=== PATIENT | male | born 1940 | race Caucasian/White ===

== ENCOUNTER → 2018-02-02 | Outpatient (CLI) | payer MEDICARE, OTHER ==
[~2018-02-02] MED LIST: ASPI-515 PO; ATOR40TA78 PO; CALC1CAP8 PO; CELE200C PO; CHOL10003 PO; DOCU-131 PO; FAMO20TA7 PO; FINA5TAB4 PO; GLUC500T11 PO; ONDA4TAB13 SL; OXYC5TAB3 PO; TAMS-11 PO; TRAM50TA2 PO
[2018-02-02 14:25] LABS: CULTURE INDICATED? NO; MICROSCOPIC NOT IND
[2018-02-02 14:29] LABS: BASOPHILS # (AUTO) 0.06 x10^3/uL (0-0.1); BASOPHILS % (AUTO) 1 % (0-1); EOSINOPHILS # (AUTO) 0.08 x10^3/uL (0-0.4); EOSINOPHILS % (AUTO) 1 % (1-7); LYMPHOCYTES % (AUTO) 29 % (22-44); MD NO; MEAN CORPUSCULAR HEMOGLOBIN 32.3 pg (27.5-34.5); MEAN CORPUSCULAR HGB CONC 33.9 g/dL (33.2-36.2); MEAN CORPUSCULAR VOLUME 95.2 fL (81-97); MEAN PLATELET VOLUME 9.1 fL (7.4-10.4); MONOCYTES # (AUTO) 0.74 x10^3/uL (0.2-0.8); MONOCYTES % (AUTO) 9 % (2-9); NEUTROPHILS # (AUTO) 4.88 x10^3/uL (1.8-6.8); NEUTROPHILS % (AUTO) 61 % (42-75); PLATELET COUNT 239 x10^3/uL (130-400); RED BLOOD COUNT 4.92 x10^6/uL (4.38-5.82); RED CELL DISTRIBUTION WIDTH 12.9 % (9.4-14.8)
[2018-02-02 14:31] LABS: INTERNATIONAL NORMALIZED RATIO 0.96 (0.93-1.1); PROTHROMBIN TIME 10.2 Seconds (9.6-11.5)
[2018-02-02 14:32] LABS: ALANINE AMINOTRANSFERASE 30 U/L (12-78); ALBUMIN 3.7 g/dL (3.4-5.0); ANION GAP 11 mmol/L (5-15); CALCIUM 8.4 mg/dL (8.5-10.1); CHLORIDE 105 mmol/L (98-107)
[2018-02-02 14:35] LABS: ALKALINE PHOSPHATASE 71 U/L (45-117); BILIRUBIN,TOTAL 0.5 mg/dL (0.2-1.0); TOTAL PROTEIN 7.5 g/dL (6.4-8.2)
[2018-02-02 14:42] LABS: HEMOGLOBIN A1C 5.4 % (4.2-6.3)
== END | disposition home or self-care (01) ==
LOC: STAR 13:19
PROVIDERS: ATTEND Orthopaedic Surgery
DX: Z01.818 Encounter for other preprocedural examination (principal); M16.12 Unilateral primary osteoarthritis, left hip
CPT/HCPCS: 36415; 80053; 81003; 83036; 85025; 85610; 85730; 87081; 87806; 93005; G0475

== ENCOUNTER 2018-02-07 08:45 | Inpatient (IN) | payer MEDICARE, OTHER ==
[~2018-02-07] VITALS: Ht 180.3 cm; Wt 80.2 kg
[~2018-02-07 08:45] MED LIST changes: -ASPI-515 PO; -CELE200C PO; -DOCU-131 PO; +EPINEPHRINE 1 MG/ML, 1ML ONE; +KETOROLAC 60 MG/2 ML ONE; -ONDA4TAB13 SL; -OXYC5TAB3 PO; +ROPIvacaine/PF 0.2%, 20 ML ONE; -TRAM50TA2 PO; +TRANEXAMIC ACID 100 MG/ML, 10ML ONE
[2018-02-07] MEDS ORDERED: LACTATED RINGERS 1,000 ML IV SCH (09:32)
[2018-02-07] MEDS ORDERED: ACETAMINOPHEN 500 MG TABLET ONE (09:44)
[2018-02-07] MEDS ORDERED: GABAPENTIN 300 MG CAPSULE ONE (09:44)
[2018-02-07] MEDS ORDERED: GABAPENTIN 300 MG CAPSULE PO ONE (10:00)
[2018-02-07] MEDS ORDERED: ACETAMINOPHEN 500 MG TABLET PO ONE (10:00)
[2018-02-07] MEDS ORDERED: FENTANYL PF 250 MCG/5ML ONE (10:20)
[2018-02-07] MEDS ORDERED: ONDANSETRON 2MG/ML, 2ML ONE (10:23)
[2018-02-07] MEDS ORDERED: CEFAZOLIN 1,000 MG ONE (10:23)
[2018-02-07] MEDS ORDERED: DEXAMETHASONE 4 MG/ML, 1ML ONE (10:23)
[2018-02-07] MEDS ORDERED: SUCCINYLCHOLINE 20 MG/ML, 10ML ONE (10:23)
[2018-02-07] MEDS ORDERED: PROPOFOL 10 MG/ML, 20ML ONE (10:23)
[2018-02-07] MEDS ORDERED: GLYCOPYRROLATE 0.2MG/1ML, 5ML ONE (10:23)
[2018-02-07] MEDS ORDERED: ROCURONIUM 10MG/ML,5ML ONE (10:23)
[2018-02-07] MEDS ORDERED: NEOSTIGMINE 1 MG/ML, 10ML ONE (10:23)
[2018-02-07] MEDS ORDERED: MAGNESIUM HYDROXIDE 8%, 30ML UDC PO PRN (11:30)
[2018-02-07] MEDS ORDERED: SENNA/DOCUSATE TABLET PO PRN (11:30)
[2018-02-07] MEDS ORDERED: ACETAMINOPHEN 650 MG/20.3 ML UDC PO PRN (11:30)
[2018-02-07] MEDS ORDERED: PROMETHAZINE 12.5 MG SUPP PR PRN (11:30)
[2018-02-07] MEDS ORDERED: ALUMINUM/MAG/SIMETHICONE 30 ML UDC PO PRN (11:30)
[2018-02-07] MEDS ORDERED: OXYcodone IR 5MG TABLET PO PRN (11:30)
[2018-02-07] MEDS ORDERED: HYDROmorphone 1 MG/ML, 1ML IV PRN (11:30)
[2018-02-07] MEDS ORDERED: BISACODYL 10 MG SUPP PR PRN (11:30)
[2018-02-07] MEDS ORDERED: ONDANSETRON 4 MG TABLET PO PRN (11:30)
[2018-02-07] MEDS ORDERED: PROMETHAZINE 25 MG/ML, 1ML IM PRN (11:30)
[2018-02-07] MEDS ORDERED: TRANEXAMIC ACID 1,000 MG in SODIUM CHLORIDE 0.9% 100 ML IVPB ONE (11:30)
[2018-02-07] MEDS ORDERED: DIPHENHYDRAMINE 50 MG CAPSULE PO PRN (11:30)
[2018-02-07] MEDS ORDERED: ONDANSETRON 2MG/ML, 2ML IV PRN ×2 (11:30→12:30)
[2018-02-07] MEDS ORDERED: FENTANYL PF 100 MCG/2ML ONE ×2 (12:25→13:30)
[2018-02-07] MEDS ORDERED: ONDANSETRON ODT 8 MG PO PRN (12:30)
[2018-02-07] MEDS ORDERED: HYDROmorphone 2 MG/ML, 1ML IVPush PRN (12:30)
[2018-02-07] MEDS ORDERED: PROCHLORPERAZINE 5 MG/ML, 2ML IV PRN (12:30)
[2018-02-07] MEDS ORDERED: OXYcodone 5 MG/5 ML ORAL.SOL UDC PO PRN (12:30)
[2018-02-07] MEDS ORDERED: DIAZEPAM 5 MG/ML, 2ML IVPush PRN (12:30)
[2018-02-07] MEDS ORDERED: MEPERIDINE/PF 25MG/0.5ML IVPush PRN (12:30)
[2018-02-07] MEDS ORDERED: LORazepam 2 MG/ML, 1ML IVPush PRN (12:30)
[2018-02-07] MEDS ORDERED: OXYcodone 5 MG/5 ML ORAL.SOL UDC ONE (13:30)
[2018-02-07] MEDS: FENTANYL PF 100 MCG/2ML IV PRN ×4 (13:33→13:55)
[2018-02-07] MEDS ORDERED: D5%-0.45NACL+KCL 20MEQ 1,000 ML IV SCH (14:30)
[2018-02-07 14:44] VITALS: BP 124/78
[2018-02-07] MEDS ORDERED: TAMSULOSIN 0.4 MG CAP.ER.24H PO ONE (15:30)
[2018-02-07] MEDS ORDERED: ASPI-515 PO (16:26)
[2018-02-07] MEDS ORDERED: DOCU-131 PO (16:26)
[2018-02-07] MEDS ORDERED: ONDA4TAB13 SL (16:28)
[2018-02-07] MEDS ORDERED: CELE200C PO (16:28)
[2018-02-07] MEDS ORDERED: OXYC5TAB3 PO (16:30)
[2018-02-07] MEDS ORDERED: TRAM50TA2 PO (16:30)
[2018-02-07] MEDS ORDERED: ASPIRIN 81 MG TABLET EC PO SCH (18:00)
[2018-02-07 18:18] VITALS: BP 144/86
[2018-02-07] MEDS ORDERED: CEFAZOLIN PMX 1GM/50ML 50 ML IVPB SCH (20:00)
[2018-02-07] MEDS ORDERED: DOCUSATE 100 MG CAPSULE PO SCH (21:00)
[2018-02-07] MEDS ORDERED: ATORVASTATIN 40 MG TABLET PO SCH (21:00)
[2018-02-07] MEDS ORDERED: FAMOTIDINE 20 MG TABLET PO SCH (21:00)
[2018-02-08] MEDS ORDERED: DEXAMETHASONE 4 MG/ML, 1ML IVPush SCH (06:00)
[2018-02-08] MEDS ORDERED: TAMSULOSIN 0.4 MG CAP.ER.24H PO SCH (09:00)
[2018-02-08] MEDS ORDERED: FINASTERIDE 5 MG TABLET PO SCH (09:00)
[2018-02-08] MEDS ORDERED: KETOROLAC 30 MG/1 ML IV SCH (11:30)
== END 2018-02-07 18:58 | disposition home or self-care (01) | DRG 470 ==
LOC: ORIP 08:48 → 4NOR 14:20
PROVIDERS: ADMIT Orthopaedic Surgery; ATTEND Orthopaedic Surgery
PROC: 0SRB06Z Replacement of Left Hip Joint with Oxidized Zirconium on Polyethylene Synthetic Substitute, Open Approach (ICD-10-PCS; principal; 2018-02-07 09:15)
DX: M16.12 Unilateral primary osteoarthritis, left hip (principal); K21.9 Gastro-esophageal reflux disease without esophagitis; N40.0 Benign prostatic hyperplasia without lower urinary tract symptoms; Z88.5 Allergy status to narcotic agent
CPT/HCPCS: 36415; 72170; 86850; 86900; C1713; G0378; J0171; J0690; J1100; J1885; J2405; J2704; J2710; J2795; J3010; J3490; C1776; J0330; J3480; J7120